=== PATIENT | female | born 1985 | race Caucasian/White ===

== ENCOUNTER 2016-12-08 18:56 | Day surgery (SDC) | payer BC, OTHER ==
[2016-12-08] MEDS ORDERED: Sodium Chloride 0.9% 10 ML Syringe FLUSH PRN (19:48)
[2016-12-08] MEDS ORDERED: LORazepam 2 MG/ML MDV IVPUSH ONE (19:48)
[2016-12-08] MEDS ORDERED: Glucagon,Human Recombinant 1 MG Vial IVPUSH ONE (19:48)
--- NOTE | 2016-12-08 19:53 | EDM.PDOC ---
ED HPI GENERAL MEDICAL PROBLEM - General Chief Complaint: ENT Problem Stated Complaint: POSS SWALLOWED CHICKEN BONE Time Seen by Provider: 12/08/16 19:40 Source of Information: Reports: Patient History Limitations: Reports: No Limitations - History of Present Illness INITIAL COMMENTS - FREE TEXT/NARRATIVE: Patient is a 31-year-old female who presents to the ED complaining of food stuck in her throat. Patient states while eating chicken that was rodriguez wrapped the sauce used was spicy. Patient attempted to drink some water while chewing and swallowed the piece of chicken wrong. Patient started to choke and performed the hemliech relieving the choking. Patient states the chicken went farther down her esophagus and feels pressure in her chest. She has not been able to keep swallowed oral secretions down. States she did attempt to drink some water only to vomit it up. Patient has no previous episodes as such. She denies history of acid reflux. Patient has no pertinent past medical history and is taking no medications. Onset: Today, Sudden Duration: Constant Location: Reports: Chest Quality: Reports: Pressure Severity: Mild Worsens with: Reports: Other (swallowing) Context: Reports: Other Associated Symptoms: Reports: Nausea/Vomiting Throat Pain Score (Numeric/FACES): 6 - Related Data Allergies Allergy/AdvReac Type Severity Reaction Status Date / Time Sulfa (Sulfonamide Allergy Vomiting Verified 12/08/16 21:01 Antibiotics) Home Meds: Home Meds . [No Known Home Meds] 12/08/16 [History] Past Medical History - Past Health History Medical/Surgical History: Denies Medical/Surgical History - Past Surgical History GI Surgical History: Reports: Hernia Repair/Other, Other (See Below) Other GI Surgeries/Procedures: Umbilical Social & Family History - Tobacco Use Smoking Status *Q: Never Smoker - Recreational Drug Use Recreational Drug Use: No ED ROS ENT - Review of Systems Review Of Systems: See Below Constitutional: Denies: Fever, Chills Respiratory: Denies: Shortness of Breath, Cough, Sputum Cardiovascular: Reports: Chest Pain. Denies: Dyspnea on Exertion, Palpitations GI/Abdominal: Reports: Vomiting. Denies: Abdominal Pain, Nausea ED EXAM, ENT - Physical Exam Exam: See Below Exam Limited By: No Limitations General Appearance: Alert, Mild Distress, Other (patient spitting into a vomit bag) Ears: Hearing Grossly Normal Nose: Normal Inspection Mouth/Throat: Normal Inspection, Normal Oropharynx Neck: Normal Inspection, Supple, Non-Tender, Full Range of Motion. No: Lymphadenopathy (L), Lymphadenopathy (R) Respiratory/Chest: No Respiratory Distress, Lungs Clear, Normal Breath Sounds, No Accessory Muscle Use, Chest Non-Tender Cardiovascular: Normal Peripheral Pulses, Regular Rate, Rhythm GI/Abdominal: Normal Bowel Sounds, Soft, Non-Tender, No Distention Neurological: Alert, Oriented, CN II-XII Intact, Normal Cognition Psychiatric: Normal Affect, Normal Mood Skin: Warm, Dry, Normal Color Course - Vital Signs Last Recorded V/S: Last Vital Signs Temp 210.4 F H 12/08/16 23:10 Pulse 101 H 12/08/16 23:10 Resp 21 H 12/08/16 23:10 BP 105/72 12/08/16 23:10 Pulse Ox 100 12/08/16 23:10 - Orders/Labs/Meds Orders: Active Orders 24 hr Category Date Time Status Patient Status [ADT] Routine ADT 12/08/16 21:36 Active Patient to Empty Bladder [RC] ASDIRECTED Care 12/08/16 21:21 Active Peripheral IV Care [RC] . DIRECTED Care 12/08/16 19:48 Active Ready for Discharge [RC] PER UNIT ROUTINE Care 12/08/16 22:22 Active Verify Patient Consent Obtain [RC] ASDIRECTED Care 12/08/16 21:21 Active Sodium Chloride 0.9% [Saline Flush] Med 12/08/16 19:48 Active 10 ml FLUSH ASDIRECTED PRN Peripheral IV Insertion Adult [OM.PC] Routine Oth 12/08/16 19:48 Ordered Schedule Procedure [COMM] Stat Oth 12/08/16 21:38 Ordered Resuscitation Status Routine Resus Stat 12/08/16 21:21 Ordered Medication Orders Sodium Chloride (Saline Flush) 10 ml FLUSH ASDIRECTED PRN PRN Reason: Keep Vein Open Last Admin: 12/08/16 20:07 Dose: 10 ml Meds: Medications Generic Name Dose Route Start Last Admin Trade Name Freq PRN Reason Stop Dose Admin Sodium Chloride 10 ml 12/08/16 19:48 12/08/16 20:07 Saline Flush FLUSH 10 ml ASDIRECTED PRN Administration Keep Vein Open Discontinued Medications Generic Name Dose Route Start Last Admin Trade Name Freq PRN Reason Stop Dose Admin Glucagon 1 mg 12/08/16 19:48 12/08/16 20:04 Glucagen IVPUSH 12/08/16 19:49 1 mg ONETIME ONE Administration Lorazepam 1 mg 12/08/16 19:48 12/08/16 20:04 Ativan IVPUSH 12/08/16 19:49 1 mg ONETIME ONE Administration - Re-Assessments/Exams Free Text/Narrative Re-Assessment/Exam: 12/08/16 19:51 Ordered glucagon 1mg IVP and ativan 1mg IVP. 12/08/16 20:53 Patient has had no improvement. Vomiting up all liquids swallowed. Dr. Goss has been contacted. He see the patient in the E.D. Anesthesia has been notified. patient taken back to the GI suite to have food bolus removed. Departure - Departure Time of Disposition: 21:30 Disposition: DC/Tfer to Critical Access 66 Condition: good Clinical Impression: Esophageal obstruction due to food impaction - Discharge Information - My Orders Last 24 Hours: My Active Orders 12/08/16 19:48 Peripheral IV Care [RC] . DIRECTED Sodium Chloride 0.9% [Saline Flush] 10 ml FLUSH ASDIRECTED PRN Peripheral IV Insertion Adult [OM.PC] Routine 12/08/16 21:36 Patient Status [ADT] Routine - Assessment/Plan Last 24 Hours: My Active Orders 12/08/16 19:48 Peripheral IV Care [RC] . DIRECTED Sodium Chloride 0.9% [Saline Flush] 10 ml FLUSH ASDIRECTED PRN Peripheral IV Insertion Adult [OM.PC] Routine 12/08/16 21:36 Patient Status [ADT] Routine
--- NOTE | 2016-12-08 21:22 | PCM.PREANE ---
Preanesthetic Assessment - Anesthesia/Transfusion/Family Hx Anesthesia History: Prior Anesthesia Without Reaction Type of Anesthesia Reaction: Excessive Somnolence Family History of Anesthesia Reaction: No Transfusion History: No Prior Transfusion(s) Type of Transfusion Reactions: Reports: Unknown Intubation History: Unknown - Review of Systems General: No Symptoms Pulmonary: No Symptoms Cardiovascular: No Symptoms Gastrointestinal: Difficulty swallowing (has chicken bone lodged in her esophagus), Nausea, Vomiting Neurological: No Symptoms Other: Reports: None - Physical Assessment NPO Status Date: 12/08/16 NPO Status Time: 18:30 O2 Sat by Pulse Oximetry: 98 Respiratory Rate: 16 Vital Signs: Last Vital Signs Temp 37.3 C 12/08/16 19:05 Pulse 129 H 12/08/16 19:05 Resp 16 12/08/16 19:05 BP 115/82 12/08/16 19:05 Pulse Ox 98 12/08/16 19:05 Height: 1.73 m Weight: 58.967 kg ASA Class: 2 Mental Status: Alert & Oriented x3 Airway Class: Mallampati = 1 Dentition: Reports: Normal Dentition Thyro-Mental Finger Breadths: 3 Mouth Opening Finger Breadths: 3 ROM/Head Extension: Full Lungs: Clear to auscultation, Normal respiratory effort Cardiovascular: Regular Rate, Regular Rhythm - Allergies Allergies/Adverse Reactions: Allergies Allergy/AdvReac Type Severity Reaction Status Date / Time Sulfa (Sulfonamide Allergy Vomiting Verified 12/08/16 21:01 Antibiotics) - Blood Blood Available: No Product(s) Available: None - Acknowledgements Anesthesia Type Planned: General Anesthesia Pt an Appropriate Candidate for the Planned Anesthesia: Yes Alternatives and Risks of Anesthesia Discussed w Pt/Guardian: Yes Pt/Guardian Understands and Agrees with Anesthesia Plan: Yes PreAnesthesia Questionnaire - Past Health History Medical/Surgical History: Denies Medical/Surgical History - Past Surgical History GI Surgical History: Reports: Hernia Repair/Other, Other (See Below) Other GI Surgeries/Procedures: Umbilical - SUBSTANCE USE Smoking Status *Q: Never Smoker Tobacco Use Within Last Twelve Months: No Second Hand Smoke Exposure: No Recreational Drug Use History: No - HOME MEDS Home Medications: Home Meds . [No Known Home Meds] 12/08/16 [History] - CURRENT (IN HOUSE) MEDS Current Meds: Current Medications Sodium Chloride (Saline Flush) 10 ml FLUSH ASDIRECTED PRN PRN Reason: Keep Vein Open Last Admin: 12/08/16 20:07 Dose: 10 ml Discontinued Medications Glucagon (Glucagen) 1 mg IVPUSH ONETIME ONE Stop: 12/08/16 19:49 Last Admin: 12/08/16 20:04 Dose: 1 mg Lorazepam (Ativan) 1 mg IVPUSH ONETIME ONE Stop: 12/08/16 19:49 Last Admin: 12/08/16 20:04 Dose: 1 mg
--- NOTE | 2016-12-08 21:28 | PCM.HP ---
H&P History of Present Illness - General Date of Service: 12/08/16 Admit Problem/Dx: Esophageal meat impaction Source of Information: Patient History Limitations: Reports: No Limitations - History of Present Illness Initial Comments - Free Text/Narative: 31-year-old, female was in the usual state of excellent health until this evening at about 6:30 PM when she noticed that the chicken that she had just eaten for dinner along with peas didn't pass into the stomach as it usually does. This was associated with chest discomfort, and an inability to tolerate her salivary secretions. Because of this she came to the emergency room for evaluation. Medical efforts to disimpact the distal meat impaction were unsuccessful and I was called to evaluate the patient. She has no history of GERD or dysphagia. She's not taken PPIs or H2 blockers. She's never had a problem like this before. Throat Pain Score (Numeric/FACES): 6 - Related Data Allergies/Adverse Reactions: Allergies Allergy/AdvReac Type Severity Reaction Status Date / Time Sulfa (Sulfonamide Allergy Vomiting Verified 12/08/16 21:01 Antibiotics) Home Medications: Home Meds . [No Known Home Meds] 12/08/16 [History] Past Medical History - Past Health History Medical/Surgical History: Denies Medical/Surgical History - Past Surgical History GI Surgical History: Reports: Hernia Repair/Other, Other (See Below) Other GI Surgeries/Procedures: Umbilical Social & Family History - Tobacco Use Smoking Status *Q: Never Smoker Second Hand Smoke Exposure: No - Recreational Drug Use Recreational Drug Use: No H&P Review of Systems - Review of Systems: Review Of Systems: See Below Exam - Exam Exam: See Below - Vital Signs Vital Signs: Last Vital Signs Temp 37.3 C 12/08/16 19:05 Pulse 129 H 12/08/16 19:05 Resp 16 12/08/16 21:22 BP 115/82 12/08/16 19:05 Pulse Ox 98 12/08/16 21:22 Weight: 58.967 kg - Exam General: Alert, Oriented, Cooperative, Mild Distress HEENT: EOMI, Hearing Intact Neck: Supple, Trachea Midline Lungs: Clear to Auscultation, Normal Respiratory Effort Cardiovascular: Regular Rate, Regular Rhythm, Normal S1, Normal S2 Abdomen: Normal Bowel Sounds, Soft (Female) Exam: Deferred Rectal (Female) Exam: Deferred Back Exam: Full Range of Motion Extremities: Normal Inspection Skin: Warm, Dry, Intact Neuro Extensive - Mental Status: Alert, Oriented x3, Normal Mood/Affect, Normal Cognition, Memory Intact Psychiatric: Alert, Normal Affect, Normal Mood *Q Meaningful Use (ADM) - VTE *Q VTE Criteria *Q: - Stroke *Q Stroke Criteria *Q: - AMI *Q AMI Criteria *Q: - Problem List (1) Esophageal obstruction due to food impaction SNOMED Code(s): 190284360 ICD Code: K22.2 - ESOPHAGEAL OBSTRUCTION; T18.128A - FOOD IN ESOPHAGUS CAUSING OTHER INJURY, INITIAL ENCOUNTER Status: Acute Priority: High Current Visit: Yes Problem List Initiated/Reviewed/Updated: Yes Orders Last 24hrs: Active Orders 24 hr Category Date Time Status Patient to Empty Bladder [RC] ASDIRECTED Care 12/08/16 21:21 Ordered Peripheral IV Care [RC] . DIRECTED Care 12/08/16 19:48 Active Verify Patient Consent Obtain [RC] ASDIRECTED Care 12/08/16 21:21 Ordered Nothing Per Oral Diet [DIET] Diet 12/08/16 Dinner Ordered Sodium Chloride 0.9% [Saline Flush] Med 12/08/16 19:48 Active 10 ml FLUSH ASDIRECTED PRN Peripheral IV Insertion Adult [OM.PC] Routine Oth 12/08/16 19:48 Ordered Resuscitation Status Routine Resus Stat 12/08/16 21:21 Ordered Medication Orders Sodium Chloride (Saline Flush) 10 ml FLUSH ASDIRECTED PRN PRN Reason: Keep Vein Open Last Admin: 12/08/16 20:07 Dose: 10 ml Assessment/Plan Comment:: Imp: Distal esophageal meat impaction with failure to pass after medical management. Needs mechanical disimpaction. Plan: Esophagogastroduodenoscopy with meat disimpaction. I explained the benefits, and risks of the procedure, the patient and her . They have both asked me to proceed.
[2016-12-08] MEDS ORDERED: fentaNYL 250 MCG/5 ML SDV ONE (21:54)
[2016-12-08] MEDS ORDERED: Propofol 200 MG/20 ML SDV ONE (21:54)
[2016-12-08] MEDS ORDERED: Midazolam 1 MG/ML 2 ML SDV ONE (21:54)
[2016-12-08] MEDS ORDERED: Succinylcholine/Normal Saline 100 MG/5 ML Syringe ONE (21:55)
[2016-12-08] MEDS ORDERED: Lidocaine 1% 4 ML ONE (21:55)
[2016-12-08] MEDS ORDERED: Ondansetron 4 MG/2 ML SDV ONE (21:55)
[2016-12-08] MEDS ORDERED: Dexamethasone 4 MG/ML SDV ONE (21:55)
--- NOTE | 2016-12-08 22:07 | PCM.OPNOTE ---
- General Post-Op/Procedure Note Date of Surgery/Procedure: 12/08/16 Operative Procedure(s): Esophagogastroduodenoscopy with meat disimpaction Findings: Distal esophageal chicken impaction with chewed green peas, no strictures or mass, lesions were seen Pre Op Diagnosis: Distal esophageal meat impaction Post-Op Diagnosis: Same Anesthesia Technique: General ET tube Primary Surgeon: Misael Goss Pathology: None EBL in mLs: 0 Complications: None Condition: Good Free Text/Narrative:: After adequate general endotracheal tube anesthesia was obtained the patient was placed on her left side. A lubricated upper endoscope was inserted in the esophagus and advanced towards the distal esophagus. The chicken,meat was immediately seen. I was able to gently push the scope into the chicken, which passed to the stomach. I then entered into the duodenum. The duodenum and antrum were unremarkable. In the retroflexed view there was no hiatal hernia. There was no gastritis or duodenitis. The GE junction was without stricturing or mass lesions. tThere was some abrasion of the distal esophageal mucosa which was most likely due to to scope trauma from the enzymatic inflammation from the meat impaction. The body of the esophagus was unremarkable. Air was removed, as I finished the procedure, which she tolerated well. Circular Knife Machine Cutter photographs taken for the patient and for the record.
--- NOTE | 2016-12-08 22:24 | PCM.POSTAN ---
POST ANESTHESIA ASSESSMENT - MENTAL STATUS Mental Status: alert, oriented - VITAL SIGNS Pulse Rate: 116 SaO2: 100 Resp Rate: 18 Blood Pressure: 117/76 Temperature: 37.6 C - RESPIRATORY Respiratory Status: respiratory rate WNL, airway patent, O2 saturation stable, supplemental oxygen - CARDIOVASCULAR CV Status: blood pressure stable, elevated pulse rate - GASTROINTESTINAL GI Status: no symptoms - PAIN Pain Score: 0 - POST OP HYDRATION Hydration Status: adequate & stable
--- NOTE | 2016-12-08 22:51 | PCM48HPAN ---
Post Anesthesia Note - EVALUATION WITHIN 48HRS OF ANESTHETIC Vital Signs in Normal Range: Yes Patient Participated in Evaluation: Yes Respiratory Function Stable: Yes Airway Patent: Yes Cardiovascular Function Stable: Yes Hydration Status Stable: Yes Pain Control Satisfactory: Yes Nausea and Vomiting Control Satisfactory: Yes Mental Status Recovered: Yes
[2016-12-08 23:11] VITALS: BP 105/72
== END 2016-12-08 23:30 | disposition home or self-care (01) ==
LOC: JD.ED 18:56 → JD.SDS 21:43
PROVIDERS: ATTEND Surgery
DX: T18.128A Food in esophagus causing other injury, initial encounter (principal); K22.2 Esophageal obstruction; Z98.890 Other specified postprocedural states; Z88.2 Allergy status to sulfonamides; Z79.899 Other long term (current) drug therapy
CPT/HCPCS: 43247; 96374; 96375; 99285; J0330; J1100; J1610; J2060; J2250; J2405; J3010; J7050; 00740; 99284; J2704

== ENCOUNTER 2017-11-06 07:04 | Inpatient (IN) | payer OTHER ==
[2017-11-06] MEDS ORDERED: Ampicillin 2 GM in Sodium Chloride 0.9% 100 ML IV ONE (07:55)
[2017-11-06] MEDS ORDERED: Sodium Chloride 0.9% 10 ML Syringe FLUSH PRN (07:55)
[2017-11-06] MEDS ORDERED: Oxytocin/Lactated Ringers 10 UNIT/1,000 ML BAG IV SCH ×2 (08:00)
[2017-11-06] MEDS: Lactated Ringers 1,000 ML IV SCH ×3 (08:25→16:45)
--- NOTE | 2017-11-06 09:30 | PCM.PREANE ---
Preanesthetic Assessment - Procedure Proposed Procedure: LEVI- informed of borderline platelent count and risk of bleeding- informed of transfer to [place] for neurologist if hematoma- - Anesthesia/Transfusion/Family Hx Anesthesia History: Prior Anesthesia Without Reaction Family History of Anesthesia Reaction: No Transfusion History: No Prior Transfusion(s) Type of Transfusion Reactions: Reports: Unknown Intubation History: Unknown - Review of Systems General: No Symptoms Pulmonary: No Symptoms Cardiovascular: No Symptoms Gastrointestinal: No Symptoms Neurological: No Symptoms - Physical Assessment O2 Sat by Pulse Oximetry: 100 Respiratory Rate: 20 Vital Signs: Last Vital Signs Temp 98.7 F 11/06/17 07:47 Pulse 91 11/06/17 07:47 Resp 20 11/06/17 07:47 BP 121/72 11/06/17 07:47 Pulse Ox 100 11/06/17 07:47 Height: 5 ft 8 in Weight: 84.822 kg ASA Class: 2 Mental Status: Alert & Oriented x3 Airway Class: Mallampati = 1 Dentition: Reports: Normal Dentition Thyro-Mental Finger Breadths: 3 Mouth Opening Finger Breadths: 3 ROM/Head Extension: Full Lungs: Clear to Auscultation, Normal Respiratory Effort Cardiovascular: Regular Rate, Regular Rhythm - Lab Values: Laboratory Last Values WBC 13.64 K/mm3 (3.98-10.04) H 11/06/17 08:16 RBC 3.54 M/mm3 (3.98-5.22) L 11/06/17 08:16 Hgb 11.3 gm/L (11.2-15.7) 11/06/17 08:16 Hct 33.5 % (34.1-44.9) L 11/06/17 08:16 MCV 94.6 fl (79.4-94.8) 11/06/17 08:16 MCH 31.9 pg (25.6-32.2) 11/06/17 08:16 MCHC 33.7 g/dl (32.2-35.5) 11/06/17 08:16 RDW Std Deviation 51.1 fL (36.4-46.3) H 11/06/17 08:16 Plt Count 106 K/mm3 (182-369) L 11/06/17 08:16 MPV 10.0 fl (9.4-12.3) 04/12/18 08:16 Blood Type O POSITIVE 11/06/17 08:16 Gel Antibody Screen Negative 11/06/17 08:16 - Allergies Allergies/Adverse Reactions: Allergies Allergy/AdvReac Type Severity Reaction Status Date / Time Sulfa (Sulfonamide Allergy Vomiting Verified 12/08/16 21:01 Antibiotics) - Blood Blood Available: No - Acknowledgements Anesthesia Type Planned: Epidural Pt an Appropriate Candidate for the Planned Anesthesia: Yes Alternatives and Risks of Anesthesia Discussed w Pt/Guardian: Yes Pt/Guardian Understands and Agrees with Anesthesia Plan: Yes PreAnesthesia Questionnaire - Past Health History Medical/Surgical History: Denies Medical/Surgical History Cardiovascular History: Reports: None Respiratory History: Reports: None : 3 (40 weeks) Para: 2 - Past Surgical History HEENT Surgical History: Reports: Oral Surgery, Tonsillectomy GI Surgical History: Reports: Hernia Repair/Other, Other (See Below) Other GI Surgeries/Procedures: Umbilical - History Comment History Comment: and pribiiotic and iron and miralax - SUBSTANCE USE Smoking Status *Q: Never Smoker Tobacco Use Within Last Twelve Months: No Second Hand Smoke Exposure: No Days Per Week of Alcohol Use: 0 Recreational Drug Use History: No - HOME MEDS Home Medications: Home Meds . [No Known Home Meds] 12/08/16 [History] - CURRENT (IN HOUSE) MEDS Current Meds: Current Medications Ampicillin Sodium 1 gm/ Sodium (Chloride) 100 mls @ 200 mls/hr IV Q4H KENYON Lactated Ringer's (Ringers, Lactated) 1,000 mls @ 100 mls/hr IV ASDIRECTED KENYON Last Admin: 11/06/17 08:25 Dose: 100 mls/hr Oxytocin/Lactated Ringer's (Pitocin In Lr 10 Units/1,000 Ml) 10 unit in 1,000 mls @ 100 mls/hr IV .CONTINUOUS KENYON Oxytocin/Lactated Ringer's (Pitocin In Lr 10 Units/1,000 Ml) 10 unit in 1,000 mls @ 12 mls/hr IV TITRATE KENYON; Protocol Last Admin: 11/06/17 08:44 Dose: 2 munits/min, 12 mls/hr Sodium Chloride (Saline Flush) 10 ml FLUSH ASDIRECTED PRN PRN Reason: Keep Vein Open Discontinued Medications Ampicillin Sodium 2 gm/ Sodium (Chloride) 100 mls @ 200 mls/hr IV ONETIME ONE Stop: 11/06/17 08:24 Last Admin: 11/06/17 08:25 Dose: 200 mls/hr
[2017-11-06] MEDS ORDERED: diphenhydrAMINE 50 MG/ML SDV IVPUSH PRN (09:33)
[2017-11-06] MEDS ORDERED: fentaNYL 100 MCG/2 ML SDV EPIDUR PRN (09:33)
[2017-11-06] MEDS ORDERED: ePHEDrine 50 MG/ML SDV IVPUSH PRN (09:33)
[2017-11-06] MEDS ORDERED: Bupivacaine 0.25% 10 ML SDV ONE (11:00)
[2017-11-06] MEDS: Ampicillin 1 GM in Sodium Chloride 0.9% 100 ML IV SCH ×3 (12:32→20:10)
[2017-11-06] MEDS: fentaNYL/Bupivacaine in NS PF 2.5 MCG/ML-0.1% 50 ML Syringe EPIDUR SCH ×3 (14:40→21:40)
[2017-11-07] MEDS ORDERED: Witch Hazel Medicated Pads 100/Jar TOP PRN (04:05)
[2017-11-07] MEDS ORDERED: Lanolin 100% Cream 7 GM Tube TOP PRN (04:05)
[2017-11-07] MEDS ORDERED: Docusate Sodium 100 MG Cap PO PRN (04:05)
--- NOTE | 2017-11-07 07:36 | PCM.LDHP ---
L&D History of Present Illness - General Date of Service: 11/06/17 Admit Problem/Dx: Admission Diagnosis/Problem Admission Diagnosis/Problem Source of Information: Patient History Limitations: Reports: No Limitations - History of Present Illness Pain Score: 7 - Related Data Allergies/Adverse Reactions: Allergies Allergy/AdvReac Type Severity Reaction Status Date / Time Sulfa (Sulfonamide Allergy Vomiting Verified 12/08/16 21:01 Antibiotics) Home Medications: Home Meds . [No Known Home Meds] 12/08/16 [History] Past Medical History - Past Health History Medical/Surgical History: Denies Medical/Surgical History Cardiovascular History: Reports: None Respiratory History: Reports: None - Past Surgical History HEENT Surgical History: Reports: Oral Surgery, Tonsillectomy GI Surgical History: Reports: Hernia Repair/Other, Other (See Below) Other GI Surgeries/Procedures: Umbilical - History Comment History Comment: and pribiiotic and iron and miralax Social & Family History - Family History Family Medical History: Noncontributory - Tobacco Use Smoking Status *Q: Never Smoker Second Hand Smoke Exposure: No - Caffeine Use Caffeine Use: Reports: None - Alcohol Use Days Per Week of Alcohol Use: 0 - Recreational Drug Use Recreational Drug Use: No H&P Review of Systems - Review of Systems: Review Of Systems: See Below General: Reports: No Symptoms HEENT: Reports: No Symptoms Pulmonary: Reports: No Symptoms Cardiovascular: Reports: No Symptoms Gastrointestinal: Reports: No Symptoms Genitourinary: Reports: No Symptoms Musculoskeletal: Reports: No Symptoms Skin: Reports: No Symptoms Psychiatric: Reports: No Symptoms Neurological: Reports: No Symptoms Hematologic/Lymphatic: Reports: No Symptoms Immunologic: Reports: No Symptoms L&D Exam - Exam Exam: See Below - Vital Signs Vital Signs: Last Vital Signs Temp 37.1 C 11/06/17 07:47 Pulse 91 11/06/17 07:47 Resp 20 11/06/17 09:30 BP 121/72 11/06/17 07:47 Pulse Ox 100 11/06/17 09:30 Weight: 84.822 kg - OB Specific Contraction Intensity: Mild to Moderate Movement: Active Heart Tones: Present Heart Tones per Min: 145 Presentation: Vertex - Kline Score Kline Score Cervix Position: Midposition Kline Score Consistency: Soft Kline Score Effacement: 51-70% Kline Score Dilation: 1-2 cm Kline Score 's Station: -3 Kline Score Total: 6 - Exam General: Alert, Oriented HEENT: PERRLA, Conjunctiva Clear, EACs Clear, EOMI, Hearing Intact, Mucosa Moist & [place], Nares Patent, Normal Nasal Septum, Posterior Pharynx Clear, TMs Clear Neck: Supple, Trachea Midline Lungs: Clear to Auscultation, Normal Respiratory Effort Cardiovascular: Regular Rate, Regular Rhythm GI/Abdominal Exam: Normal Bowel Sounds, Soft, Non-Tender, No Organomegaly, No Distention, No Abnormal Bruit, No Mass, Pelvis Stable Genitourinary: Normal external exam, Normal bimanual exam, Normal speculum exam Back Exam: Normal Inspection, Full Range of Motion Extremities: Normal Inspection, Normal Range of Motion, Non-Tender, No Pedal Edema, Normal Capillary Refill Skin: Warm, Dry, Intact Neurological: Cranial Nerves Intact, Reflexes Equal Bilateral Psychiatric: Alert, Normal Affect, Normal Mood - Patient Data Lab Results Last 24 hrs: Laboratory Results - last 24 hr 11/06/17 11/06/17 Range/Units 08:16 08:16 WBC 13.64 H (3.98-10.04) K/mm3 RBC 3.54 L (3.98-5.22) M/mm3 Hgb 11.3 (11.2-15.7) gm/L Hct 33.5 L (34.1-44.9) % MCV 94.6 (79.4-94.8) fl MCH 31.9 (25.6-32.2) pg MCHC 33.7 (32.2-35.5) g/dl RDW Std Deviation 51.1 H (36.4-46.3) fL Plt Count 106 L (182-369) K/mm3 MPV 10.0 (9.4-12.3) fl Blood Type O POSITIVE Gel Antibody Screen Negative Result Diagrams: 11/06/17 08:16 Problem List Initiated/Reviewed/Updated: Yes Orders Last 24hrs: Active Orders 24 hr Category Date Time Status Activity as Tolerated [RC] PER UNIT ROUTINE Care 11/07/17 04:05 Active Activity as Tolerated [RC] PFP Care 11/06/17 07:56 Inactive Communication Order [RC] ASDIRECTED Care 11/06/17 07:56 Inactive Heart Tones [RC] ASDIRECTED Care 11/06/17 07:57 Inactive Notify Provider [RC] ASDIRECTED Care 11/06/17 09:33 Inactive Notify Provider [RC] PFP Care 11/06/17 07:56 Inactive Notify Provider [RC] PRN Care 11/06/17 07:56 Inactive Peripheral IV Care [RC] . DIRECTED Care 11/06/17 07:57 Inactive Vital Signs [RC] ASDIRECTED Care 11/07/17 04:05 Active Vital Signs [RC] PER UNIT ROUTINE Care 11/06/17 07:56 Inactive Regular Diet [DIET] Diet 11/07/17 Breakfast Active Docusate Sodium [Colace] Med 11/07/17 04:05 Active 100 mg PO BID PRN Ibuprofen [Motrin] Med 11/07/17 04:05 Active 600 mg PO Q6H PRN Lanolin [Lansinoh HPA] Med 11/07/17 04:05 Active See Dose Instructions TOP ASDIRECTED PRN Witch [place] [Tucks] Med 11/07/17 04:05 Active 1 pad TOP ASDIRECTED PRN Assess Lochia [WOMSER] Per Unit Routine Oth 11/07/17 04:05 Ordered Assess Uterine Involution [WOMSER] Per Unit Routine Oth 11/07/17 04:05 Ordered Breast Pump [WOMSER] Per Unit Routine Oth 11/07/17 04:05 Ordered Heat Therapy [OM.PC] PRN Oth 11/07/17 04:05 Ordered Heat Therapy [OM.PC] PRN Oth 11/08/17 04:05 Ordered Medication Administration Instruction [OM.PC] Routine Oth 11/07/17 04:05 Ordered Perineal Care [OM.PC] Per Unit Routine Oth 11/07/17 04:05 Ordered Sitz Bath [OM.PC] Per Unit Routine Oth 11/07/17 04:05 Ordered Resuscitation Status Routine Resus Stat 11/06/17 07:55 Ordered Medication Orders Docusate Sodium (Colace) 100 mg PO BID PRN PRN Reason: Constipation Emollient Ointment (Lansinoh Hpa) 0 gm TOP ASDIRECTED PRN PRN Reason: Sore Nipples Ibuprofen (Motrin) 600 mg PO Q6H PRN PRN Reason: Mild pain or fever Witch [place] (Tucks) 1 pad TOP ASDIRECTED PRN PRN Reason: Hemorrhoid pain Assessment/Plan Comment:: 32 year old here for induction of labor
--- NOTE | 2017-11-07 07:39 | PCM.PNPP ---
- General Info Date of Service: 11/07/17 Functional Status: Reports: Pain Controlled - Review of Systems General: Reports: No Symptoms HEENT: Reports: No Symptoms Pulmonary: Reports: No Symptoms Cardiovascular: Reports: No Symptoms Gastrointestinal: Reports: No Symptoms Genitourinary: Reports: No Symptoms Musculoskeletal: Reports: No Symptoms Skin: Reports: No Symptoms Neurological: Reports: No Symptoms Psychiatric: Reports: No Symptoms - General Info Date of Service: 11/07/17 - Patient Data Vital Signs - Most Recent: Last Vital Signs Temp 37.1 C 11/06/17 07:47 Pulse 91 11/06/17 07:47 Resp 20 11/06/17 09:30 BP 121/72 11/06/17 07:47 Pulse Ox 100 11/06/17 09:30 Weight - Most Recent: 84.822 kg I&O - Last 24 Hours: Intake & Output 11/06/17 11/07/17 11/07/17 22:59 06:59 14:59 Intake Total 120 Balance 120 Lab Results - Last 24 Hours: Laboratory Results - last 24 hr 11/06/17 11/06/17 Range/Units 08:16 08:16 WBC 13.64 H (3.98-10.04) K/mm3 RBC 3.54 L (3.98-5.22) M/mm3 Hgb 11.3 (11.2-15.7) gm/L Hct 33.5 L (34.1-44.9) % MCV 94.6 (79.4-94.8) fl MCH 31.9 (25.6-32.2) pg MCHC 33.7 (32.2-35.5) g/dl RDW Std Deviation 51.1 H (36.4-46.3) fL Plt Count 106 L (182-369) K/mm3 MPV 10.0 (9.4-12.3) fl Blood Type O POSITIVE Gel Antibody Screen Negative Med Orders - Current: Current Medications Docusate Sodium (Colace) 100 mg PO BID PRN PRN Reason: Constipation Emollient Ointment (Lansinoh Hpa) 0 gm TOP ASDIRECTED PRN PRN Reason: Sore Nipples Ibuprofen (Motrin) 600 mg PO Q6H PRN PRN Reason: Mild pain or fever Witch [place] (Tucks) 1 pad TOP ASDIRECTED PRN PRN Reason: Hemorrhoid pain Discontinued Medications Diphenhydramine HCl (Benadryl) 25 mg IVPUSH Q6H PRN PRN Reason: pruritis Ephedrine Sulfate (Ephedrine Sulfate) 5 mg IVPUSH ASDIRECTED PRN PRN Reason: Hypotension Fentanyl (Sublimaze) 100 mcg EPIDUR Q3H PRN PRN Reason: Pain Last Admin: 11/06/17 14:40 Dose: 100 mcg Fentanyl/Bupivacaine HCl (Fentanyl/Bupivacaine/Ns 2.5 Mcg-0.1% 50 Ml) 50 ml EPIDUR ASDIRECTED KENYON Last Admin: 11/06/17 21:40 Dose: 50 ml Ampicillin Sodium 2 gm/ Sodium (Chloride) 100 mls @ 200 mls/hr IV ONETIME ONE Stop: 11/06/17 08:24 Last Admin: 11/06/17 08:25 Dose: 200 mls/hr Ampicillin Sodium 1 gm/ Sodium (Chloride) 100 mls @ 200 mls/hr IV Q4H KENYON Last Admin: 11/06/17 20:10 Dose: 200 mls/hr Lactated Ringer's (Ringers, Lactated) 1,000 mls @ 100 mls/hr IV ASDIRECTED KENYON Last Admin: 11/06/17 16:45 Dose: 100 mls/hr Oxytocin/Lactated Ringer's (Pitocin In Lr 10 Units/1,000 Ml) 10 unit in 1,000 mls @ 100 mls/hr IV .CONTINUOUS KENYON Oxytocin/Lactated Ringer's (Pitocin In Lr 10 Units/1,000 Ml) 10 unit in 1,000 mls @ 12 mls/hr IV TITRATE KENYON; Protocol Last Titration: 11/06/17 12:30 Dose: 4 munits/min, 24 mls/hr Sodium Chloride (Saline Flush) 10 ml FLUSH ASDIRECTED PRN PRN Reason: Keep Vein Open - Interaction Support Person: - Recovery Exam Fundal Tone: Firm Fundal Level: 1 Fingerbreadths Below Umbilicus Fundal Placement: Midline Lochia Amount: Scant Lochia Color: Rubra/Red Perineum Description: Edematous Episiotomy/Laceration: None Bladder Status: Voiding - Exam General: Alert, Oriented HEENT: Pupils Equal Neck: Supple Lungs: Clear to Auscultation, Normal Respiratory Effort Cardiovascular: Regular Rate, Regular Rhythm GI/Abdominal Exam: Normal Bowel Sounds, Soft, Non-Tender, No Organomegaly, No Distention, No Abnormal Bruit, No Mass, Pelvis Stable Extremities: Normal Inspection, Normal Range of Motion, Non-Tender, No Pedal Edema, Normal Capillary Refill Wound/Incisions: Healing Well Neurological: No New Focal Deficit Psy/Mental Status: Alert, Normal Affect, Normal Mood - Problem List Review Problem List Initiated/Reviewed/Updated: Yes - My Orders Last 24 Hours: My Active Orders 11/06/17 07:55 Resuscitation Status Routine 11/06/17 07:56 Activity as Tolerated [RC] PFP Communication Order [RC] ASDIRECTED Notify Provider [RC] PFP Notify Provider [RC] PRN Vital Signs [RC] PER UNIT ROUTINE 11/06/17 07:57 Heart Tones [RC] ASDIRECTED Peripheral IV Care [RC] . DIRECTED 11/07/17 04:05 Activity as Tolerated [RC] PER UNIT ROUTINE Vital Signs [RC] ASDIRECTED Docusate Sodium [Colace] 100 mg PO BID PRN Ibuprofen [Motrin] 600 mg PO Q6H PRN Lanolin [Lansinoh HPA] See Dose Instructions TOP ASDIRECTED PRN Witch Marbella [Tucks] 1 pad TOP ASDIRECTED PRN Assess Lochia [WOMSER] Per Unit Routine Assess Uterine Involution [WOMSER] Per Unit Routine Breast Pump [WOMSER] Per Unit Routine Heat Therapy [OM.PC] PRN Medication Administration Instruction [OM.PC] Routine Perineal Care [OM.PC] Per Unit Routine Sitz Bath [OM.PC] Per Unit Routine 11/07/17 Breakfast Regular Diet [DIET] 11/08/17 04:05 Heat Therapy [OM.PC] PRN - Assessment Assessment:: Term delivery. Doing well. - Plan Plan:: 32 year old doing well day 1
[2017-11-07] MEDS: Ibuprofen 600 MG Tab PO PRN ×2 (09:20→20:23)
[2017-11-08] MEDS: Ibuprofen 600 MG Tab PO PRN ×2 (03:43→11:16)
[2017-11-08 11:55] VITALS: BP 117/82
--- NOTE | 2017-11-08 12:26 | PCM.DCSUM1 ---
Discharge Summary - Hospital Course Free Text/Narrative:: Mallory is a 32-year-old 3 now para 3003 white female who was admitted on 11/06/2017 for elective induction of labor at term. Patient underwent induction of labor, delivered a viable, ruffin without concerns. She is nursing the baby without problems. She is ambulating well, has minimal lochia and is voiding without problems. She is desiring discharge home. - Discharge Data Discharge Date: 11/08/17 Discharge Disposition: Home, Self-Care 01 Condition: Good - Patient Instructions Diet: Regular Diet as Tolerated (Nursing diet was increased calories and calcium as recommended) Activity: As Tolerated (No intercourse or tampons until vaginal discharge results.) Driving: May Drive Today Showering/Bathing: May Shower (may take a bath) Notify Provider of: Fever, Increased Pain, Swelling and Redness, Nausea and/or Vomiting - Discharge Plan Home Medications: Home Meds Ibuprofen [IJD: Ibuprofen] 600 mg PO Q6H PRN tablet 11/08/17 [Rx] Referrals: Ilana Gray MD [Primary Care Provider] - (Return to [facility] -6 weekspatient to call for appointment.) - Discharge Summary/Plan Comment DC Time >30 min.: No Discharge Summary/Plan Comment: Discharge instructions: 1. Discharge home 2. Diet, activity and follow-up discussed with patient. Recommend nursing diet with increased calories and calcium. 3. Precautions given concern increased pain, bleeding, temperature, signs/ symptoms of DVT/PE. 4. Medications per home medication was printed, discussed with and given to the patient. 5. [facility] Diagnosis: Term -delivered Condition: Good - Patient Data Vitals - Most Recent: Last Vital Signs Temp 36.7 C 11/08/17 11:07 Pulse 86 11/08/17 11:07 Resp 16 11/08/17 11:07 BP 117/82 11/08/17 11:07 Pulse Ox 100 11/08/17 11:07 Weight - Most Recent: 84.822 kg I&O - Last 24 hours: Intake & Output 11/07/17 11/08/17 11/08/17 22:59 06:59 14:59 Intake Total 0 120 Balance 0 120 Med Orders - Current: Current Medications Docusate Sodium (Colace) 100 mg PO BID PRN PRN Reason: Constipation Last Admin: 11/07/17 09:20 Dose: 100 mg Emollient Ointment (Lansinoh Hpa) 0 gm TOP ASDIRECTED PRN PRN Reason: Sore Nipples Last Admin: 11/07/17 20:23 Dose: 1 tube Ibuprofen (Motrin) 600 mg PO Q6H PRN PRN Reason: Mild pain or fever Last Admin: 11/08/17 11:16 Dose: 600 mg Witch [place] (Tucks) 1 pad TOP ASDIRECTED PRN PRN Reason: Hemorrhoid pain Discontinued Medications Diphenhydramine HCl (Benadryl) 25 mg IVPUSH Q6H PRN PRN Reason: pruritis Ephedrine Sulfate (Ephedrine Sulfate) 5 mg IVPUSH ASDIRECTED PRN PRN Reason: Hypotension Fentanyl (Sublimaze) 100 mcg EPIDUR Q3H PRN PRN Reason: Pain Last Admin: 11/06/17 14:40 Dose: 100 mcg Fentanyl/Bupivacaine HCl (Fentanyl/Bupivacaine/Ns 2.5 Mcg-0.1% 50 Ml) 50 ml EPIDUR ASDIRECTED KENYON Last Admin: 11/06/17 21:40 Dose: 50 ml Ampicillin Sodium 2 gm/ Sodium (Chloride) 100 mls @ 200 mls/hr IV ONETIME ONE Stop: 11/06/17 08:24 Last Admin: 11/06/17 08:25 Dose: 200 mls/hr Ampicillin Sodium 1 gm/ Sodium (Chloride) 100 mls @ 200 mls/hr IV Q4H KENYON Last Admin: 11/06/17 20:10 Dose: 200 mls/hr Lactated Ringer's (Ringers, Lactated) 1,000 mls @ 100 mls/hr IV ASDIRECTED KENYON Last Admin: 11/06/17 16:45 Dose: 100 mls/hr Oxytocin/Lactated Ringer's (Pitocin In Lr 10 Units/1,000 Ml) 10 unit in 1,000 mls @ 100 mls/hr IV .CONTINUOUS KENYON Oxytocin/Lactated Ringer's (Pitocin In Lr 10 Units/1,000 Ml) 10 unit in 1,000 mls @ 12 mls/hr IV TITRATE KENYON; Protocol Last Titration: 04/12/18 12:30 Dose: 4 munits/min, 24 mls/hr Sodium Chloride (Saline Flush) 10 ml FLUSH ASDIRECTED PRN PRN Reason: Keep Vein Open
--- NOTE | 2017-12-23 06:35 | PCM.SN ---
- Free Text/Narrative Note: Stage I - Patient presented in labor. Progressed to complete with overall reassuring FHT. Augmented with pitocin and AROM. Epidural for anesthesia. Stage II - of viable male, 4210g. APGARS 8/9 at 2324 on 11.06.17. Head delivered in controlled manner over intact perineum. Body and shoulders followed atraumatically. Vigorous cry. Baby to maternal abdomen where nurse prepared to help with any resuscitation if needed.. Cord clamped and cut after 60 seconds. Cord blood collected. Stage III - Placenta delivered spontaneous and intact. [id number]. No lacerations.
== END 2017-11-08 13:55 | disposition home or self-care (01) | DRG 775 ==
LOC: EDSTATUS 07:04 → JD.OB 07:06 → UNDOADMOB 07:06 → OBSVTOIN 23:24 → JD.OB 23:24
PROVIDERS: ADMIT Obstetrics & Gynecology; ATTEND Obstetrics & Gynecology
PROC: 10E0XZZ Delivery of Products of Conception, External Approach (ICD-10-PCS; principal; 2017-11-06)
PROC: 10907ZC Drainage of Amniotic Fluid, Therapeutic from Products of Conception, Via Natural or Artificial Opening (ICD-10-PCS; 2017-11-06)
PROC: 3E033VJ Introduction of Other Hormone into Peripheral Vein, Percutaneous Approach (ICD-10-PCS; 2017-11-06)
PROC: 00HU33Z Insertion of Infusion Device into Spinal Canal, Percutaneous Approach (ICD-10-PCS; 2017-11-06)
PROC: 3E0R3BZ Introduction of Anesthetic Agent into Spinal Canal, Percutaneous Approach (ICD-10-PCS; 2017-11-06)
DX: O99.824 Streptococcus B carrier state complicating childbirth (principal); Z37.0 Single live birth; Z3A.40 40 weeks gestation of pregnancy
CPT/HCPCS: 36415; 51702; 59025; 59409; 85027; 86850; 86900; 86901; A9270-GY; J0290; J2590; J3010; J7030; J7120